=== PATIENT | male | born 1950 | race Caucasian/White ===

== ENCOUNTER 2019-02-09 17:44 | Inpatient (IN) | payer MEDICARE, BC ==
[~2019-02-09] VITALS: Ht 182.9 cm; Wt 137.4 kg
[2019-02-09] VITALS (45 sets, daily range): BP systolic 107–132; BP diastolic 60–73; PULSE 82–100; TEMP 98.6–98.7; O2SAT 92–97
[2019-02-09 18:15] LABS: HEMATOCRIT 41.6 % (42.0-52.0); HEMOGLOBIN 14.1 g/dl (13.5-18.0); MEAN CELL VOLUME 89 fl (80.0-100.0); MEAN CORPUSCULAR HEMOGLOBIN 30 pg (27.0-31.0); MEAN CORPUSCULAR HGB CONC 34 g/dl (33.0-37.0); MEAN PLATELET VOLUME 9.1 fl (7.4-10.4); PLATELET COUNT 217 K/mm3 (130-400); REDCELL DISTRIBUTION WIDTH-CV 14.7 % (11.5-14.5)
[2019-02-09 18:19] LABS: INR 1.1 (0.8-3.0); PROTHROMBIN TIME 13.1 SECONDS (9.7-12.8)
[2019-02-09 18:22] LABS: PARTIAL THROMBOPLASTIN TIME 29.9 SECONDS (26.0-37.0)
[2019-02-09 18:27] LABS: ALBUMIN 4.1 gm/dL (3.5-5.0); BILIRUBIN,TOTAL 0.9 mg/dL (0.0-1.0); CALCIUM 9.4 mg/dL (8.4-10.2); CREATININE, serum 0.83 (0.66-1.25); POTASSIUM 3.5 mmol/L (3.4-5.0); TOTAL PROTEIN 7.4 gm/dL (6.4-8.2)
[2019-02-09] MEDS ORDERED: ALPHAGAN OPHTH D5 ML OU (18:34)
[2019-02-09] MEDS ORDERED: HCTZ 25MG TAB25 MG PO (18:34)
[2019-02-09] MEDS ORDERED: MULTI VITAMINS1 TAB PO (18:35)
[2019-02-09] MEDS ORDERED: ASPIRIN 81M81 MG/TA2 PO (18:35)
[2019-02-09] MEDS ORDERED: XALATAN EYE DROPS OD (18:35)
[2019-02-09 18:39] LABS: ANISOCYTOSIS 2+; LYMPHOCYTE 73 % (20.0-51.0); NEUTROPHILS 24 % (42.0-75.2)
[2019-02-09 18:40] LABS: MICROCYTOSIS 1+
[2019-02-09 18:41] LABS: PLATELET ESTIMATE NORMAL (NORMAL)
[2019-02-09 18:42] LABS: TROPONIN-I 6.58 ng/mL (0.000-0.035)
[2019-02-09 22:42] LABS: TROPONIN-I 3 HR POST INITIAL 7.18 ng/mL (0.000-0.034)
--- NOTE | 2019-02-09 23:04 | NUR ---
CALLED AND LET ARVIN WAGONER KNOW THAT THE PATIENTS TRIPONION INCREASED FROM PREVIOUS LAB DRAW. SHE TOLD ME TO CALL DR. NELSON AND INFORM HIM OF THE INFORMATION WELL.
--- NOTE | 2019-02-09 23:16 | NUR ---
CALLED OMAR PRITCHARD TO LET HIM KNOW ABOUT PATIENTS INCREASED TRIPONIN. DR. NELSON WOULD LIKE TO POSSIBLY CATH THE PATIENT IN THE MORNING. WILL CONTINUE TO MONITOR PATIENT THROUGHOUT THE NIGHT.
[2019-02-09] MEDS ORDERED: COSOPT 2%-0.5%10 ML OU (23:40)
[2019-02-10] VITALS (738 sets, daily range): BP systolic 98–138; BP diastolic 55–91; PULSE 59–109; TEMP 98–98.6; O2SAT 84–98
--- NOTE | 2019-02-10 01:42 | NUR ---
RECEIVED CRITICAL TRIPONIN LEVEL OF 9.110 ON PATIENT. DID NOT NOTIFY DR. NELSON DUE TO THE FACT WHEN DISCUSSING WITH HIM ON THE PHONE LEVY HE SAID HE DID NOT NEED TO BE NOTIFIED FOR FURTHER CRITICAL TRIPONINS BECAUSE HE ALREADY HAD A COARSE OF ACTION HE PLANNED ON TAKING REGARDING THE PATIENT.
[2019-02-10 05:18] LABS: HEMATOCRIT 37.4 % (42.0-52.0); HEMOGLOBIN 12.7 g/dl (13.5-18.0); MEAN CELL VOLUME 89 fl (80.0-100.0); MEAN CORPUSCULAR HEMOGLOBIN 30 pg (27.0-31.0); MEAN CORPUSCULAR HGB CONC 34 g/dl (33.0-37.0); MEAN PLATELET VOLUME 9.5 fl (7.4-10.4); PLATELET COUNT 198 K/mm3 (130-400); RED BLOOD COUNT 4.19 M/mm3 (4.20-5.60); REDCELL DISTRIBUTION WIDTH-CV 14.9 % (11.5-14.5)
[2019-02-10 05:28] LABS: CALCIUM 8.8 mg/dL (8.4-10.2); CHOLESTEROL RISK RATIO 4.4; CREATININE, serum 0.93 (0.66-1.25); POTASSIUM 3.2 mmol/L (3.4-5.0)
[2019-02-10 05:36] LABS: BAND 2 % (0-10); LYMPHOCYTE 73 % (20.0-51.0); NEUTROPHILS 25 % (42.0-75.2)
[2019-02-10 05:37] LABS: PLATELET ESTIMATE NORMAL (NORMAL)
[2019-02-10 05:45] LABS: TROPONIN-I 9.49 ng/mL (0.000-0.035)
[2019-02-10 05:58] LABS: TSH w REFLEX 1.78 uIU/mL (0.465-4.680)
--- NOTE | 2019-02-10 07:34 | NUR ---
gave report to tremaine waddell.
[2019-02-10 09:11] LABS: HEMATOCRIT 38.8 % (42.0-52.0); HEMOGLOBIN 13.1 g/dl (13.5-18.0); MEAN CELL VOLUME 89 fl (80.0-100.0); MEAN CORPUSCULAR HEMOGLOBIN 30 pg (27.0-31.0); MEAN CORPUSCULAR HGB CONC 34 g/dl (33.0-37.0); MEAN PLATELET VOLUME 9.3 fl (7.4-10.4); PLATELET COUNT 192 K/mm3 (130-400); RED BLOOD COUNT 4.38 M/mm3 (4.20-5.60); REDCELL DISTRIBUTION WIDTH-CV 14.8 % (11.5-14.5)
[2019-02-10 09:17] LABS: INR 1.1 (0.8-3.0); PROTHROMBIN TIME 13.3 SECONDS (9.7-12.8)
[2019-02-10 09:19] LABS: PARTIAL THROMBOPLASTIN TIME 31.7 SECONDS (26.0-37.0)
[2019-02-10 09:22] LABS: CALCIUM 8.7 mg/dL (8.4-10.2); CREATININE, serum 0.88 (0.66-1.25); POTASSIUM 3.2 mmol/L (3.4-5.0)
--- NOTE | 2019-02-10 09:35 | NUR ---
First visit from the learning and development associate. No needs right now.
--- NOTE | 2019-02-10 09:37 | NUR ---
With Sylvia,RN HepXa assessed and bolus and dose changed together
--- NOTE | 2019-02-10 10:18 | NUR ---
Pt off to [facility] for procedure
--- NOTE | 2019-02-10 10:57 | NUR ---
PLEASE SEE MERGE FOR MEDICATION ADMINISTRATION TIMES, SEDATION ASSESSMENT DATA DURING AND POST PROCEDURE.
--- NOTE | 2019-02-10 12:15 | NUR ---
Pt arrived back from [facility] with LAURA Galarza. Pt AAOx4, only complaint is need to urinate. Pt sat on edge of bed to urinate successfully. TR band in place, site stable education provided.
--- NOTE | 2019-02-10 13:42 | NUR ---
Pt ambulated with standby assistance to recliner. Continues to deny chest pain. Spouse and sales administration specialist at bedside with pt
--- NOTE | 2019-02-10 14:20 | NUR ---
Reported that 12mL of air inserted into TR Band during application. 3mL of air removed from TR Band - pt tolerated well
--- NOTE | 2019-02-10 17:07 | NUR ---
All air removed from TR-Band and kept in place. Site stable with no bleeding or hematoma. Pt educated on wrist precautions.
[2019-02-11] VITALS (358 sets, daily range): BP systolic 111–133; BP diastolic 55–89; PULSE 63–104; TEMP 97.6–98.8; O2SAT 84–100
[2019-02-11 05:01] LABS: HEMATOCRIT 38.1 % (42.0-52.0); HEMOGLOBIN 12.9 g/dl (13.5-18.0); MEAN CELL VOLUME 89 fl (80.0-100.0); MEAN CORPUSCULAR HEMOGLOBIN 30 pg (27.0-31.0); MEAN CORPUSCULAR HGB CONC 34 g/dl (33.0-37.0); MEAN PLATELET VOLUME 9.5 fl (7.4-10.4); PLATELET COUNT 233 K/mm3 (130-400); RED BLOOD COUNT 4.29 M/mm3 (4.20-5.60); REDCELL DISTRIBUTION WIDTH-CV 14.9 % (11.5-14.5)
[2019-02-11 05:16] LABS: CALCIUM 8.6 mg/dL (8.4-10.2); CREATININE, serum 1.01 (0.66-1.25); MAGNESIUM 2.2 mg/dL (1.6-2.3); POTASSIUM 3.8 mmol/L (3.4-5.0)
--- NOTE | 2019-02-11 05:17 | NUR ---
CRITICAL LAB OF WBC 27.1 REPORTED TO RIGGING WORKER.
[2019-02-11 05:19] LABS: BAND 3 % (0-10); EOSINOPHIL 1 % (0-4); LYMPHOCYTE 75 % (20.0-51.0); NEUTROPHILS 19 % (42.0-75.2)
[2019-02-11 05:20] LABS: PLATELET ESTIMATE NORMAL (NORMAL)
[2019-02-11 05:24] LABS: OVALOCYTES 1+
--- NOTE | 2019-02-11 08:00 | NUR ---
Shift assessment complete at this time. Plan of care reviewed at bedside with patient. Additional time taken to address any other needs or concerns. Vitals stable at this time. Denies pain or any other discomfort. R radial cath site clean, dry, et intact with no hematoma or drainage. Bed in low position, call light within reach. Will continue to monitor.
--- NOTE | 2019-02-11 08:37 | NUR ---
Dr. Jama at bedside rounding on Pt. Notified provider about elevated QTc >500. Provider still wanting Sotalol to be administered despite elevated QTc. Will continue to monitor.
--- NOTE | 2019-02-11 11:32 | NUR ---
SW met with patient to discuss discharge planning. Patient lives with his at home. Patient's PCP see Sangita JALLOH) at [facility] and obtains prescriptions from [facility]. Patient does not use any DME or home health services. Patient does not have a DPOA but would like the form. KAM provided DPOA and instructed patient to inform SW if he would like to complete it. SW does not anticipate any discharge needs.
--- NOTE | 2019-02-11 12:00 | NUR ---
Pt resting comfortably in chair. Denies pain or any other discomfort. Vitals stable at this time. Call light within reach. R radial cath site clean, dry, et intact with no drainage or hematoma. Will continue to monitor.
--- NOTE | 2019-02-11 13:00 | NUR ---
Patient has been transferred to the floor from ICU. Patient is ambulatory and denies pain or nausea. Radial site is C/D/I. Pulse is +2 to right side. No edema noted. CMS intact to right hand. No other changes at this time. Call light within reach. Oriented patient to room. No other changes at this time. Call light within reach.
--- NOTE | 2019-02-11 20:25 | NUR ---
Pt sitting on bench at bedside. No distress noted.Family just left for the evening. Pt states he is "looking forward to getting some rest". Respirations even and unlabored. Lungs clear. HR and rhythm regular. Pulses 2+, equal bilaterally. No edema noted. R radial access site covered with bandaid- no drainage. Pts QTC is elevated >500. Giving Sotalol per MD request. Repeat EKG in AM. No needs noted. Will continue to monitor.
--- NOTE | 2019-02-12 00:05 | NUR ---
pt sleeping. No distress noted. Will continue to monitor.
[2019-02-12 03:20] VITALS: BP 127/56; PULSE 69; TEMP 99.3
--- NOTE | 2019-02-12 05:40 | NUR ---
Pts L AC IV site leaking blood. Site discontinued with catheter intact. Second IV site still flushes well. Pt reports he slept well last night and that he is just waiting for lab to come.
[2019-02-12 06:33] LABS: MAGNESIUM 2.4 mg/dL (1.6-2.3); POTASSIUM 3.7 mmol/L (3.4-5.0)
--- NOTE | 2019-02-12 07:39 | NUR ---
Assessment completed, alert/oriented, vital signs stable, denies pain or discomfort, heart RRR/ SR on tele, right radial access site looks good / no signs of bleeding or hematoma, distal pulses are palpable, lungs CTA/ no resp.difficulty, he is up in the room independently, today is day 3 of Sotalol initiation, anticipate discharge home later today
[2019-02-12 07:42] VITALS: BP 120/54; PULSE 70; TEMP 98.3
[2019-02-12 08:40] VITALS: BP 121/59; PULSE 76; TEMP 97.7
[2019-02-12] MEDS ORDERED: BRILINTA90 MG PO (10:49)
[2019-02-12] MEDS ORDERED: LIPITOR 80MG80 MG PO (10:49)
[2019-02-12] MEDS ORDERED: ELIQUIS 5MG PO (10:49)
[2019-02-12] MEDS ORDERED: BETAPACE 80MG80 MG PO (11:18)
[2019-02-12] MEDS ORDERED: TOPROL XL 25MG25 MG PO (11:40)
--- NOTE | 2019-02-12 14:02 | NUR ---
Discharge instructions reviewed with the patient, instructed to follow up as scheduled, discussed all new medications and medication changes, scripts sent to pharmacy, IV and tele removed, he is leaving with his and daughter, I personally escorted him out the door
== END 2019-02-12 14:06 | disposition home or self-care (01) | DRG 246 ==
LOC: COL.ER 17:44 → ICU 19:30 → SURG 02-11 12:34
PROVIDERS: Emergency Medicine; Hospitalist; Internal Medicine Cardiovascular Disease; Nurse Practitioner; ADMIT Internal Medicine
PROC: 027034Z Dilation of Coronary Artery, One Artery with Drug-eluting Intraluminal Device, Percutaneous Approach (ICD-10-PCS; principal; 2019-02-09)
PROC: 4A023N7 Measurement of Cardiac Sampling and Pressure, Left Heart, Percutaneous Approach (ICD-10-PCS; 2019-02-09)
PROC: B2111ZZ Fluoroscopy of Multiple Coronary Arteries using Low Osmolar Contrast (ICD-10-PCS; 2019-02-09)
DX: I25.10 Atherosclerotic heart disease of native coronary artery without angina pectoris (principal); I21.4 Non-ST elevation (NSTEMI) myocardial infarction; Z68.41 Body mass index [BMI] 40.0-44.9, adult; I48.2 Chronic atrial fibrillation; H40.9 Unspecified glaucoma; I10 Essential (primary) hypertension; E66.9 Obesity, unspecified; E87.6 Hypokalemia
CPT/HCPCS: 99222-AI; 99231-AI; 99239; C1725; C1769; C1874; C1887; C9600; J0153; J0282; J0583; J1644; J2250; J3010; J7030; J7060

== ENCOUNTER → 2020-05-28 | Outpatient (CLI) | payer MEDICARE, BC ==
[~2020-05-28] MED LIST: ALPHAGAN OPHTH D5 ML OU; ASPIRIN 81M81 MG/TA2 PO; BETAPACE 80MG80 MG PO; BRILINTA90 MG PO; COSOPT 2%-0.5%10 ML OU; ELIQUIS 5MG PO; HCTZ 25MG TAB25 MG PO; LIPITOR 80MG80 MG PO; MULTI VITAMINS1 TAB PO; TOPROL XL 25MG25 MG PO; XALATAN EYE DROPS OD
== END ==
LOC: COL.RAD 08:20
DX: C91.10 Chronic lymphocytic leukemia of B-cell type not having achieved remission (principal); D72.820 Lymphocytosis (symptomatic); I28.9 Disease of pulmonary vessels, unspecified
CPT/HCPCS: Q9967

== ENCOUNTER 2020-06-12 22:27 | Emergency (ER) | payer MEDICARE, BC ==
[2020-06-13 02:08] LABS: CREATININE, serum 0.89 (0.66-1.25); INR 1.8 (0.8-3.0); PARTIAL THROMBOPLASTIN TIME 36.4 SECONDS (26.0-37.0); PROTHROMBIN TIME 20.3 SECONDS (9.7-12.8)
[2020-06-13 02:09] LABS: ALBUMIN 3.6 gm/dL (3.5-5.0); BILIRUBIN,TOTAL 1.5 mg/dL (0.0-1.0); CALCIUM 8.2 mg/dL (8.4-10.2); MAGNESIUM 2.4 mg/dL (1.6-2.3); POTASSIUM 4.2 mmol/L (3.4-5.0); TOTAL PROTEIN 6.7 gm/dL (6.4-8.2); TROPONIN-I 0.025 ng/mL (0.000-0.035)
[2020-06-13 02:17] LABS: HEMOGLOBIN 21.6 g/dl (13.5-18.0); MEAN CELL VOLUME 92 fl (80.0-100.0); MEAN CORPUSCULAR HEMOGLOBIN 30 pg (27.0-31.0); MEAN CORPUSCULAR HGB CONC 33 g/dl (33.0-37.0); MEAN PLATELET VOLUME 9.7 fl (7.4-10.4); PLATELET COUNT 79 K/mm3 (130-400); RED BLOOD COUNT 7.12 M/mm3 (4.20-5.60); REDCELL DISTRIBUTION WIDTH-CV 17.5 % (11.5-14.5)
[2020-06-13 02:18] LABS: HEMATOCRIT 65.7 % (42.0-52.0)
[2020-06-13 02:20] LABS: HYPOCHROMIA 2+; LYMPHOCYTE 92 % (20.0-51.0); NEUTROPHILS 8 % (42.0-75.2); OVALOCYTES 1+; PLATELET ESTIMATE DECREASED (NORMAL)
[2020-06-13 04:20] VITALS: BP 144/70; PULSE 90; TEMP 99.8
== END 2020-06-13 04:20 ==
LOC: COL.ER 22:27
PROVIDERS: Emergency Medicine
DX: U07.1 COVID-19 (principal); I48.91 Unspecified atrial fibrillation; I10 Essential (primary) hypertension; E78.5 Hyperlipidemia, unspecified; Z79.01 Long term (current) use of anticoagulants; Z85.6 Personal history of leukemia; Z79.02 Long term (current) use of antithrombotics/antiplatelets; Z79.82 Long term (current) use of aspirin
CPT/HCPCS: J7030

== ENCOUNTER 2020-12-27 16:51 | Observation (INO) | payer MEDICARE, BC ==
[2020-12-27] VITALS (93 sets, daily range): BP systolic 156; BP diastolic 84; PULSE 77; TEMP 98.4; O2SAT 93–100
[~2020-12-27] VITALS: Ht 182.9 cm; Wt 134.3 kg
[~2020-12-27 16:51] MED LIST changes: -XALATAN EYE DROPS OD; +XALATAN EYE DROPS OU
[2020-12-27 17:38] LABS: HEMOGLOBIN 10.8 g/dl (13.5-18.0); MEAN CELL VOLUME 95 fl (80.0-100.0); MEAN CORPUSCULAR HEMOGLOBIN 30 pg (27.0-31.0); MEAN CORPUSCULAR HGB CONC 31 g/dl (33.0-37.0); MEAN PLATELET VOLUME 9.1 fl (7.4-10.4); PLATELET COUNT 181 K/mm3 (130-400); RED BLOOD COUNT 3.61 M/mm3 (4.20-5.60); REDCELL DISTRIBUTION WIDTH-CV 16.4 % (11.5-14.5)
[2020-12-27 17:39] LABS: HEMATOCRIT 34.4 % (42.0-52.0)
[2020-12-27 17:42] LABS: ALBUMIN 3.6 gm/dL (3.5-5.0); BILIRUBIN,TOTAL 0.8 mg/dL (0.0-1.0); CALCIUM 9.1 mg/dL (8.4-10.2); CREATININE, serum 0.86 (0.66-1.25)
[2020-12-27 17:54] LABS: TROPONIN-I 0.014 ng/mL (0.000-0.035)
[2020-12-27 17:55] LABS: BAND 17 % (0-10); LYMPHOCYTE 2 % (20.0-51.0); NEUTROPHILS 77 % (42.0-75.2)
[2020-12-27 17:56] LABS: ANISOCYTOSIS 1+; HYPOCHROMIA 2+
[2020-12-27 17:57] LABS: PLATELET ESTIMATE NORMAL (NORMAL)
--- NOTE | 2020-12-27 20:25 | NUR ---
Pt arrived to ICU room 1 at this time via cart with LARRY Palacios RN. Pt able to transfer from the cart to the ICU bed with SBA. Pt oriented to room and call light system. Pt is now sitting up in the bed and he denies further needs. Call light within reach.
[2020-12-27 20:53] LABS: INR 1.5 (0.8-3.0); PROTHROMBIN TIME 16.5 SECONDS (9.7-12.8)
[2020-12-27 20:55] LABS: PARTIAL THROMBOPLASTIN TIME 33.6 SECONDS (26.0-37.0)
[2020-12-27] MEDS ORDERED: ZOVIRAX400 MG PO (21:39)
[2020-12-27] MEDS ORDERED: TOPROL XL 25MG25 MG PO (21:40)
[2020-12-27] MEDS ORDERED: LIPITOR 80MG80 MG PO (21:41)
[2020-12-27] MEDS ORDERED: BACTRIM DS 8001 TAB PO (21:43)
[2020-12-28] VITALS (232 sets, daily range): BP systolic 140–149; BP diastolic 61–98; PULSE 65–98; TEMP 97.5–98.1; O2SAT 85–99
[2020-12-28 05:41] LABS: MEAN CELL VOLUME 95 fl (80.0-100.0); MEAN CORPUSCULAR HEMOGLOBIN 30 pg (27.0-31.0); MEAN CORPUSCULAR HGB CONC 31 g/dl (33.0-37.0); PLATELET COUNT 151 K/mm3 (130-400); RED BLOOD COUNT 3.35 M/mm3 (4.20-5.60); REDCELL DISTRIBUTION WIDTH-CV 16.5 % (11.5-14.5)
[2020-12-28 05:50] LABS: HEMATOCRIT 31.8 % (42.0-52.0)
[2020-12-28 05:51] LABS: CALCIUM 8.9 mg/dL (8.4-10.2); CREATININE, serum 0.87 (0.66-1.25)
[2020-12-28 06:18] LABS: BAND 16 % (0-10); HYPOCHROMIA 1+; LYMPHOCYTE 3 % (20.0-51.0); NEUTROPHILS 79 % (42.0-75.2); OVALOCYTES 1+
[2020-12-28 06:19] LABS: ANISOCYTOSIS 1+; PLATELET ESTIMATE NORMAL (NORMAL)
--- NOTE | 2020-12-28 07:25 | NUR ---
Bedside shift report given to LAURA Landaverde.
--- NOTE | 2020-12-28 10:24 | NUR ---
Initial visit; Patient thanked Direct Support Professional [facility] for looking in on him and stated his Rn Faculty brought him into the hospital and he does have a good support system.
--- NOTE | 2020-12-28 10:47 | NUR ---
1046- Pt is ambulatory from room without complaint for discharge. PT is met by breakfast host at ER door and leaves in private vehicle.
--- NOTE | 2020-12-28 11:07 | NUR ---
The patient discharged before this Driver Operator could complete intake.
== END 2020-12-28 10:46 | disposition home or self-care (01) ==
LOC: COL.ER 16:51 → ICU 18:14
PROVIDERS: Emergency Medicine; Nurse Practitioner Family; ADMIT Student in an Organized Health Care Education/Training Program
DX: I48.91 Unspecified atrial fibrillation (principal); I10 Essential (primary) hypertension; I08.1 Rheumatic disorders of both mitral and tricuspid valves; E78.5 Hyperlipidemia, unspecified; I25.10 Atherosclerotic heart disease of native coronary artery without angina pectoris; I25.2 Old myocardial infarction; E66.01 Morbid (severe) obesity due to excess calories; Z68.41 Body mass index [BMI] 40.0-44.9, adult; C91.10 Chronic lymphocytic leukemia of B-cell type not having achieved remission; H40.9 Unspecified glaucoma; D64.9 Anemia, unspecified; Z79.01 Long term (current) use of anticoagulants; Z86.16 Personal history of COVID-19; Z95.5 Presence of coronary angioplasty implant and graft; Z79.899 Other long term (current) drug therapy
CPT/HCPCS: G0378